=== PATIENT | female | born 1965 | race Caucasian/White ===

== ENCOUNTER 2021-05-10 10:36 | Emergency (ER) | payer BC ==
[~2021-05-10] VITALS: Ht 157.5 cm; Wt 86.2 kg
[2021-05-10] MEDS ORDERED: CIPRO500 MG PO (13:10)
[2021-05-10] MEDS ORDERED: PYRIDIUM200 MG PO (13:10)
== END 2021-05-10 13:41 | disposition home or self-care (01) ==
LOC: ER 10:36
DX: N39.0 Urinary tract infection, site not specified (principal)